=== PATIENT | female | born 1965 | race Caucasian/White ===

== ENCOUNTER → 2016-11-08 | Outpatient (CLI) | payer BC ==
[~2016-11-08] MED LIST: ASPI-630 PO; ATEN5POW MC; CALC500T54 PO; COLE1TAB2 PO; LISI-334 PO; MULT-234 PO; OMEG300C PO; [UNRECOGNIZED DRUG - CODE] MC
--- NOTE | 2016-11-08 12:22 | KCIC ---
DATE: 11/08/2016 EXAM: MAMMO FRANTZ SCREENING BILATERAL HISTORY: Routine screening COMPARISON: 11/11/2015 The breast parenchyma shows scattered fibroglandular densities. Breast parenchyma level B. FINDINGS: 2-D and 3-D tomosynthesis imaging was performed in CC and MLO projections. No new or enlarging breast densities are seen. Benign type calcifications are again noted. No suspicious microcalcifications are evident. Benign-appearing lymph node type densities are present in the axillary regions. IMPRESSION: Stable mammograms without evidence of malignancy. BI-RADS CATEGORY: 2 BENIGN FINDING(S) RECOMMENDED FOLLOW-UP: 12M 12 MONTH FOLLOW-UP PQRS compliance statement: Patient information was entered into a reminder system with a target due date for the next mammogram. Mammography is a sensitive method for finding small breast cancers, but it does not detect them all and is not a substitute for careful clinical examination. A negative mammogram does not negate a clinically suspicious finding and should not result in delay in biopsying a clinically suspicious abnormality. "Our facility is accredited by the [employer] Mammography [employer]."
== END | disposition home or self-care (01) ==
LOC: KCIC MAMMO 10:30
PROVIDERS: ATTEND Family Medicine
DX: Z12.31 Encounter for screening mammogram for malignant neoplasm of breast (principal)
CPT/HCPCS: 77063; G0202; 77067

== ENCOUNTER → 2017-11-15 | Outpatient (CLI) | payer BC ==
--- NOTE | 2017-11-15 15:09 | KCIC ---
Bilateral digital screening mammograms with 3-D tomosynthesis: Reason for examination: Routine screening. Comparison is made to previous studies dated 11/08/2016 and 11/11/2015. Bilateral mammograms in CC and oblique projections were obtained with 2-D imaging and 3-D tomosynthesis imaging on a [employer] Inspiration unit and reviewed on the workstation. Interpretation was made with the benefit of CAD. The skin and nipples show no abnormalities. No abnormal axillary lymph nodes are seen. The breast parenchyma shows scattered fibroglandular density. (Breast density: Category B.) There are no dominant masses, suspicious calcifications or architectural distortion. Impression: No evidence of malignancy. Recommend routine screening. BI-RAD Category 1: Negative. "Our facility is accredited by the [employer] Mammography [employer]." This patient's information has been entered into a reminder system for the patient to be notified with the results of her examination and a target date for the next mammogram. Electronically signed by: Denae Gomez MD (11/15/2017 3:05 PM) [id number]
== END | disposition home or self-care (01) ==
LOC: KCIC MAMMO 12:18
PROVIDERS: ATTEND Family Medicine
DX: Z12.31 Encounter for screening mammogram for malignant neoplasm of breast (principal)
CPT/HCPCS: 77063; 77067

== ENCOUNTER → 2018-11-20 | Outpatient (CLI) | payer BC ==
--- NOTE | 2018-11-20 13:01 | KCIC ---
Bilateral digital screening mammograms with 3-D tomosynthesis: Reason for examination: Routine screening. Comparison is made to previous studies dated 11/15/2017 and 11/08/2016. Bilateral mammograms in CC and oblique projections were obtained with 2-D imaging and 3-D tomosynthesis imaging on a [employer] Inspiration unit and reviewed on the workstation. Interpretation was made with the benefit of CAD. The skin and nipples show no abnormalities. No abnormal axillary lymph nodes are seen. The breast parenchyma is predominantly fatty. (Breast density: Category A.) There are no dominant masses, suspicious calcifications or architectural distortion. A few benign appearing punctate calcifications are again seen. Impression: No evidence of malignancy. Recommend routine screening. BI-RAD Category 2: Benign. "Our facility is accredited by the [employer] Mammography [employer]." This patient's information has been entered into a reminder system for the patient to be notified with the results of her examination and a target date for the next mammogram. Electronically signed by: Denae Gomez MD (11/20/2018 12:58 PM) [id number]
== END | disposition home or self-care (01) ==
LOC: KCIC MAMMO 10:06
PROVIDERS: ATTEND Family Medicine
DX: N64.89 Other specified disorders of breast (principal); Z12.31 Encounter for screening mammogram for malignant neoplasm of breast
CPT/HCPCS: 77063; 77067

== ENCOUNTER → 2019-06-27 | Outpatient (CLI) | payer BC ==
--- NOTE | 2019-06-27 14:42 | RAD ---
EXAM: Left knee, 3 views. HISTORY: Pain. COMPARISON: None. FINDINGS: 3 views of the left knee are obtained. There is no fracture, dislocation or subluxation. There is a small joint effusion. There is slight enthesopathy along the patella. IMPRESSION: 1. No acute osseous finding. 2. Small joint effusion. Electronically signed by: Sissy Livingston MD (06/27/2019 2:39 PM) [id number]
== END | disposition home or self-care (01) ==
LOC: RAD 13:45
PROVIDERS: ATTEND Family Medicine
DX: M25.462 Effusion, left knee (principal); M77.8 Other enthesopathies, not elsewhere classified
CPT/HCPCS: 73562

== ENCOUNTER → 2019-11-26 | Outpatient (CLI) | payer BC ==
--- NOTE | 2019-11-26 19:02 | KCIC ---
Bilateral digital screening mammograms with 3-D tomosynthesis: Reason for examination: Routine screening. Comparison is made to previous studies dated back to 11/08/2016. Bilateral mammograms in CC and oblique projections were obtained with 2-D imaging and 3-D tomosynthesis imaging on a [employer] Inspiration unit and reviewed on the workstation. Interpretation was made with the benefit of CAD. The skin and nipples show no abnormalities. No abnormal axillary lymph nodes are seen. The breast parenchyma shows scattered fatty and fibroglandular density. (Breast density: Category B.) There are no dominant masses, suspicious calcifications or architectural distortion. A few benign calcifications are again seen. Impression: No evidence of malignancy. Recommend routine screening. BI-RAD Category 2: Benign. "Our facility is accredited by the [employer] Mammography [employer]." This patient's information has been entered into a reminder system for the patient to be notified with the results of her examination and a target date for the next mammogram. Electronically signed by: Denae Gomez MD (11/26/2019 6:59 PM) [id number]
== END | disposition home or self-care (01) ==
LOC: KCIC MAMMO 10:09
PROVIDERS: ATTEND Family Medicine
DX: Z12.31 Encounter for screening mammogram for malignant neoplasm of breast (principal); N64.89 Other specified disorders of breast
CPT/HCPCS: 77063; 77067

== ENCOUNTER → 2020-11-11 | Outpatient (CLI) | payer BC ==
[~2020-11-11] MED LIST changes: -LISI-334 PO; +LISI20TA18 PO
--- NOTE | 2020-11-11 14:00 | KCIC ---
Bilateral digital screening mammograms with 3-D tomosynthesis: Reason for examination: Routine screening. Comparison is made to previous studies dated back to 11/04/2014. Bilateral mammograms in CC and oblique projections were obtained with 2-D imaging and 3-D tomosynthes is imaging on a [employer] Inspiration unit and reviewed on the workstation. Interpretation was made wit h the benefit of CAD. The skin and nipples show no abnormalities. No abnormal axillary lymph nodes are seen. The breast par enchyma shows scattered fatty and fibroglandular density. (Breast density: Category B.) There are no dominant masses, suspicious calcifications or architectural distortion. Impression: No evidence of malignancy. Recommend routine screening. BI-RAD Category 1: Negative. "Our facility is accredited by the [employer] Mammography Program." This patient's information has been entered into a reminder system for the patient to be notified wit h the results of her examination and a target date for the next mammogram. Electronically signed by: Denae Gomez MD (11/11/2020 11:43 AM) [id number]
== END ==
LOC: KCIC MAMMO 08:11
PROVIDERS: ATTEND Family Medicine
DX: Z12.31 Encounter for screening mammogram for malignant neoplasm of breast (principal)
CPT/HCPCS: 77063; 77067

== ENCOUNTER → 2020-11-25 | Outpatient (CLI) | payer BC ==
--- NOTE | 2020-11-25 14:54 | KCIC ---
EXAM: Bilateral feet, 2 views. HISTORY: Pain. COMPARISON: None. FINDINGS: 2 views of both feet are obtained. There is suspected callus formation surrounding a healed proximal right fourth metatarsal fracture. No acute fracture is seen. There are moderate bilateral p lantar spurs. There is enthesopathy at Achilles tendon insertions. IMPRESSION: 1. Suspected healed right proximal fourth metatarsal fracture. 2. Moderate bilateral plantar spurs. 3. No acute osseous finding. Electronically signed by: Sissy Livingston MD (11/25/2020 2:52 PM) [id number]
--- NOTE | 2020-11-25 14:55 | KCIC ---
EXAM: Pelvis bilateral hips, 5 views. HISTORY: Pain. COMPARISON: None. FINDINGS: A frontal view the pelvis and frontal and frog-leg views of both hips are obtained. There i s no fracture, dislocation or subluxation. There is minimal marginal acetabular and femoral head spur ring. There is sacralization of the right L5 transverse process resulting in pseudoarticulation with the underlying sacrum. This is a normal variant. There is endplate remodeling at the lower lumbar lev els. IMPRESSION: 1. Minimal bilateral hip osteoarthritis. 2. No acute osseous finding. Electronically signed by: Sissy Livingston MD (11/25/2020 2:53 PM) [id number]
== END ==
LOC: KCIC 13:34
PROVIDERS: ATTEND Family Medicine
DX: M16.0 Bilateral primary osteoarthritis of hip (principal); M79.671 Pain in right foot; M77.8 Other enthesopathies, not elsewhere classified
CPT/HCPCS: 73521; 73620

== ENCOUNTER → 2020-12-29 | Outpatient (CLI) | payer BC ==
--- NOTE | 2020-12-29 17:48 | KCIC ---
Exam Date: 12/29/2020 1:05 PM MRI RIGHT LOWER EXTREMITY W/O, MRI RIGHT LOWER EXTREMITY JOINT WITHOUT Indication: Reason: / Spl. Instructions: / History: . TECHNIQUE: MRI of the right ankle was performed without intravenous contrast. FINDINGS: The anterior and posterior talofibular ligaments are intact. The anterior and posterior tibiofibular ligaments are intact. The calcaneofibular ligament is intact. The deltoid and spring ligaments are intact. Lisfranc ligament is intact. The posterior tibial tendon, flexor digitorum longus tendon, and flexor hallucis longus tendon are in tact and within normal limits. The peroneal tendons are intact. Visualized extensor tendons are int act. Achilles tendon is intact and within normal limits. Moderate calcaneal enthesopathy is present without significant marrow edema or adjacent soft tissue e gwendolyn to suggest acute plantar fasciitis. Visualized plantar fascia is within normal limits. Moderate degenerative marrow signal is seen involving the tarsal bones, most prominent involving the cuboid, navicular, and cuneiform bones. No fracture line is identified. The sinus tarsi is within normal limits. There is dorsal subcutaneous edema involving the mid foot, nonspecific. IMPRESSION: Moderate calcaneal enthesopathy without inflammatory changes to suggest acute plantar fasciitis. Vis ualized plantar fascia is otherwise within normal limits. Scattered degenerative marrow signal is noted involving the tarsal bones. Exam Date: 12/29/2020 1:05 PM MRI RIGHT LOWER EXTREMITY W/O, MRI RIGHT LOWER EXTREMITY JOINT WITHOUT Indication: Reason: / Spl. Instructions: / History: . Technique: Multiplanar MR imaging of the right forefoot was performed without intravenous contrast. FINDINGS: Moderate degenerative changes are seen involving the tarsal bones, most prominent involving the navic ular, cuboid, and cuneiform bones. No fracture line is seen. Mild degenerative changes are seen inv olving the first MTP joint. There is dorsal subcutaneous edema which is nonspecific. No loculated collection is seen to suggest abscess. Visualized flexor and extensor tendons are within normal limits. IMPRESSION: Moderate degenerative changes noted. No acute fracture. Dorsal subcutaneous edema is nonspecific. Electronically signed by: Danielito Stanton MD (12/29/2020 5:46 PM) [id number]
== END ==
LOC: KCIC MRI 12:54
PROVIDERS: ATTEND Podiatrist
DX: M77.31 Calcaneal spur, right foot (principal); M89.8X7 Other specified disorders of bone, ankle and foot; R60.0 Localized edema
CPT/HCPCS: 73718; 73721